=== PATIENT | female | born 1990 | race Two or more races ===

== ENCOUNTER 2016-09-16 18:49 | Emergency (ER) | payer OTHER ==
[~2016-09-16] VITALS: Ht 162.6 cm; Wt 77.6 kg
[2016-09-16] MEDS ORDERED: GLUCAGON,HUMAN RECOMBINANT 1 MG KIT. IM ONE (19:45)
--- NOTE | 2016-09-16 20:02 | PHYS DOC ---
Past History Past Medical History: No Pertinent History Alcohol Use: Rarely Drug Use: None Adult General Chief Complaint Chief Complaint: FOREIGN BODY HPI HPI Patient is a 25 year old female who presents with a pill stuck in her throat. She states she took a new vitamin supplement today at 1600 & felt it get stuck in her throat, has been unable to swallow secretions or tolerate any oral intake since that time. She has been spitting secretions into a basin. She states this happened previously but resolved spontaneously. Denies fevers/ chills, abdominal pain, diarrhea. She denies shortness of breath. Review of Systems Review of Systems Constitutional: Denies fever or chills HENT: Denies nasal congestion or sore throat Respiratory: Denies cough or shortness of breath Cardiovascular: Denies chest pain or edema GI: Reports esophageal foreign body. Denies abdominal pain, nausea, vomiting, or diarrhea Musculoskeletal: Denies back pain or joint pain Integument: Denies rash Neurologic: Denies headache Allergies Allergies Allergies Coded Allergies Type Severity Reaction Last Updated Verified No Known Drug Allergies 09/16/16 No Physical Exam Physical Exam Constitutional: Well developed, well nourished, no acute distress, non-toxic appearance. HENT: Normocephalic, atraumatic, bilateral external ears normal, oropharynx moist, nose normal. no foreign body in posterior oropharynx, airway patent. Eyes: conjunctiva normal, no discharge. Neck: supple, no stridor. Cardiovascular: RRR, no murmurs, no edema. Lungs & Thorax: LCTAB, no wheezing, no respiratory distress. Abdomen: soft, nontender, nondistended. Skin: Warm, dry, no erythema, no rash. Back: No tenderness. Extremities: No deformity. Neurologic: Alert and oriented X 3 Current Patient Data Vital Signs Vital Signs Date Time Temp Pulse Resp B/P (MAP) Pulse Ox O2 Delivery O2 Flow Rate FiO2 09/16/16 19:03 98.2 83 20 97 Room Air EKG EKG [] Radiology/Procedures Radiology/Procedures [] Course & Med Decision Making Course & Med Decision Making Pertinent Labs and Imaging studies reviewed. (See chart for details) The patient presents with esophageal foreign body. Attempted to give water, fruit juice, crackers. She spent all of these into the basin. She was subsequently given glucagon without any change in her symptoms. She continues to vomit all secretions into the basin. Airway remained stable. No GI physical integration practitioner here at [facility]. Consulted with Dr. Mercedes, on-call for GI at [facility]. Planned to transfer to the ER for endoscopy. There was a delay in transfer due to some confusion about which physician would accept. Ultimately Dr. Mercedes to accept for transfer to the ER, will be seen directly by OR staff and taken for endoscopy. She is going to be transferred by EMS. She is in stable condition at time of transfer. Dragon Disclaimer Dragon Disclaimer This chart was dictated in whole or in part using Voice Recognition software in a busy, high-work load, and often noisy Emergency Department environment. It may contain unintended and wholly unrecognized errors or omissions. Departure Departure: Impression: Primary Impression: Pill esophagitis Disposition: 01 HOME, SELF-CARE Condition: STABLE KUMAR SALINAS MD September 16, 2016 20:02
[2016-09-16 21:23] VITALS: BP 128/86
== END 2016-09-16 21:58 | disposition short-term general hospital (02) ==
LOC: ER 18:49
DX: K20.8 Other esophagitis (principal)
CPT/HCPCS: 96372; 99285; J1610